=== PATIENT | male | born 1950 | race African-American/Black ===

== ENCOUNTER 2017-01-14 07:55 | Observation (INO) ==
[2017-01-13 11:21] LABS: Basophils # 0.1 10*3/uL (0.0-0.2); Basophils % 0.9 % (0.0-0.8); Eosinophils # 0.6 10*3/uL (0.0-0.87); Eosinophils % 9.6 % (0.00-10.9); Hematocrit 38.5 VOL% (42.0-52.0); Hemoglobin 12.1 GM/DL (14.0-18.0); Immature Granulocytes % 0.3 %; Immature Granulocytes Absolute 0.02 #; Lymphocytes # 0.9 10*3/uL (1.4-4.0); Lymphocytes % 14.2 % (21.2-54.2); Mean Corpuscular HGB Conc 31.4 GM/DL (32-36); Mean Corpuscular Hemoglobin 27 PG (27-34); Mean Corpuscular Volume 84.4 FL (87-102); Mean Platelet Volume 10.1 FL (9.6-12.0); Monocytes # 0.6 10*3/uL (0.11-0.8); Monocytes % 8.4 % (1.7-12.7); Neutrophils # 4.4 10*3/uL (1.4-7.4); Neutrophils % 66.6 % (38.7-73.9); Platelet Count 252 T/CUMM (130-400); Red Blood Count 4.56 MC/CUMM (3.8-5.5); Red Cell Distribution Width 14.8 % (9.3-17.3); White Blood Count 6.6 T/CUMM (4-12)
[2017-01-13 11:43] LABS: Albumin 3.4 G/DL (3.4-5.0); Bilirubin,Total 2.1 MG/DL (0.2-1.0); Calcium 9.4 MG/DL (8.5-10.1); Osmolality,Calculated 275.5 MOS/KG (273-304); Potassium 3.5 MMOL/L (3.5-5.1); Total Protein 6.7 G/DL (6.4-8.3)
--- NOTE | 2017-01-13 12:07 | EKG Report ---
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
--- NOTE | 2017-01-13 15:15 | XRay Report ---
Exam: XR chest 2V Indication: Preop Comparison study: 11/16/2013 Findings: The heart, mediastinum and bony structures are stable from prior. There is no focal consolidation, pneumothorax or pleural effusion identified. Impression: No acute cardiopulmonary process. PROCEDURE INTERPRETED AT [facility] DEPARTMENT OF RADIOLOGY Final Report Signed by: Drew Waldron
[2017-01-14] MEDS: SODIUM CHLORIDE 0.9% 1,000 ML IV SCH (08:45)
[2017-01-14 09:49] LABS: INR 1.1; PT Patient Result 11.4 SECS
[2017-01-14] MEDS ORDERED: fentaNYL 100 MCG/2 ML VIAL ONE (12:36)
[2017-01-14] MEDS ORDERED: MIDAZOLAM 2 MG/2 ML VIAL ONE (12:36)
[2017-01-14] MEDS ORDERED: PROPOFOL 200 MG/20 ML VIAL IV ONE (12:50)
[2017-01-14] MEDS ORDERED: LIDOCAINE 2% 5 ML VIAL ONE (12:50)
--- NOTE | 2017-01-14 12:52 | History and Physical Update ---
History and Physical Update - Physical Exam Mental Status: alert and oriented Heart: regular rate and rhythm Lung: clear to auscultation Abdomen: within normal limits Vitals: within normal limits History and Physical Changes: 66-year-old male with gallstones and recent biliary pain is noted to have abnormal liver tests. His total bilirubin was 2.1 yesterday with transaminases moderately elevated.
--- NOTE | 2017-01-14 13:14 | Operative Note ---
Date of procedure: 01/14/17 Pre-op diagnosis: Gallstone pancreatitis, elevated liver test Procedure: Procedure: Endoscopic retrograde cholangiography with common bile duct sphincterotomy and stone removal with balloon Brief clinical abstract: Patient is a 66-year-old male with gallstones who has had recent episodic biliary type pain. He had more severe pain within the last couple of days and has evidence of pancreatitis with elevated lipase. His liver tests were elevated yesterday with total bilirubin 2.1 and transaminases in the several 100 range. Procedure findings: After informed consent was obtained, patient was placed in the prone position. Therapeutic video duodena scope was inserted into the upper esophagus in blind fashion. Esophageal mucosa appeared normal. Stomach was examined including retroflexed view of the cardia and fundus with no abnormality seen. The pyloric channel, duodenal bulb, second and third portion of the duodenum including the appearance of the ampulla were normal. Sphincterotome and 0.035 inch guidewire were used. Biliary tree was deeply cannulated and filled with contrast. Right and left intrahepatic systems had normal appearance. Common bile duct and common hepatic duct were slightly dilated to approximately 7 mm maximally. Filling defects were visible in the distal common bile duct. Common bile duct sphincterotomy was performed over the guidewire to over 10 mm diameter. Occlusion balloon was advanced over the wire into the proximal common hepatic duct. This was dragged distally with fairly large amount of sludge like stone material passing into the duodenum. 2 subsequent passes were made with the inflated balloon from the proximal common hepatic duct into the duodenum with a minimal amount of further sludge material passed. An occlusion cholangiogram was obtained afterwards which appeared normal with no further visible filling defects. Pancreatogram was intentionally not obtained. He appeared to tolerate the procedure well. Impression: Choledocholithiasis-status post endoscopic removal with common bile duct sphincterotomy Recommendations: Cholecystectomy as planned. Anesthesia: MAC Surgeon / Physician: Brian Guerrero Estimated blood loss: none Specimens: none sent Condition: stable Disposition: post procedure unit Results - Labs CBC & BMP: 01/13/17 11:12 01/13/17 11:12 Discharge Plan - Discharge Medications No Action Diltiazem HCl [Cartia XT] 120 mg PO DAILY Valsartan/Hydrochlorothiazide [Valsartan-Hctz 160-25 mg Tab] 1 each PO DAILY metFORMIN [Glucophage] 500 mg PO BID W/MEALS - Follow Up or Referral - Forms/Instructions
--- NOTE | 2017-01-14 13:20 | Anesthesia ---
Anesthesia Post OP - Post Ansesthetic Evaluation Patient seen in post op: Yes Resp: within normal limits CV: within normal limits Mental: within normal limits Temp: within normal limits [id number]: within normal limits Nausea and Vomiting: within normal limits Pain: within normal limits
[2017-01-14] MEDS ORDERED: DEXTROSE 50% 25 GM/50 ML VIAL IV PRN (15:07)
[2017-01-14] MEDS ORDERED: GLUCAGON 1 MG VIAL IM PRN (15:07)
--- NOTE | 2017-01-14 15:10 | Fluoroscopy Report ---
FL ERCP w sphincterotomy Clinical Information: Intraoperative fluoroscopy during ERCP for cbd stone Total fluoroscopy time:3 MIN 32 SEC Comparison: Prior radiographs 12/22/2016 Findings: Intraoperative fluoroscopic images demonstrate cannulation of the common bile duct with opacification into the intrahepatic bile ducts which are nondilated. There are several filling defects noted within the distal CBD, most consistent with the given history of retained CBD stones. At the conclusion of the procedure, no residual filling defects are definitely identified within the common bile duct. Impression: Intraoperative fluoroscopy at ERCP with clearing of stones from the CBD as detailed above. PROCEDURE INTERPRETED AT [facility] DEPARTMENT OF RADIOLOGY Final Report Signed by: Drew Waldron
--- NOTE | 2017-01-14 16:03 | Event Note ---
The patient had elevated liver function tests preoperatively so I arranged for ERCP with Dr. casper. ERCP was performed without complications and he is just finished the procedure and we have put him on the floor with plans for laparoscopic cholecystectomy in the morning. The procedure and risks were once again discussed with the patient and he wishes to proceed
[2017-01-14] MEDS ORDERED: PHENOL 1.4% THROAT SPRAY 177 ML BOTTLE PO PRN (18:30)
[2017-01-15] MEDS ORDERED: CLINDAMYCIN INJ 900 MG in PREMIX 1 EACH IV ONE (06:00)
--- NOTE | 2017-01-15 11:18 | Operative Note ---
Date of procedure: 01/15/17 Pre-op diagnosis: acute cholecystitis and cholelithiasis Post-op diagnosis: other (pericholecystic abscess with extensive adhesions) Procedure: Laparoscopic cholecystectomy with intraoperative cholangiogram #2 drainage of pericholecystic abscess and extensive lysis of adhesions Findings and technique: After informed consent was obtained the patient was brought the operating room and placed in spine position. After successful induction with general anesthesia the patient's abdomen was prepped and draped in usual sterile fashion. Local anesthesia was infiltrated the umbilicus and a small transverse incision was made in umbilicus where an open technique was used and the peritoneal cavity without difficulty. Right upper quadrant was visualized and the patient was noted to have extensive adhesions between the free edge of the gallbladder and the anterior abdominal wall. Apparently had previous percutaneous drain. There were adherent loops of small bowel and colon as well. The gallbladder was not visible. Additional ports were placed in the upper abdomen under camera vision and sharp dissection used to be tediously dissected the small bowel off of what appeared to be of pericholecystic abscess cavity with chronic granulation tissue and debris within it. This was cultured. Was also biopsied to make sure that it was not malignant. Frozen section returned benign. I then tediously dissected small bowel omentum and colon off of the surface of the markedly thickened gallbladder. Gallbladder was thickened to a point that it could not be grasped. Lifting the gallbladder upwards with a tenaculum I am carefully dissected the omentum and adhesions off of the body and proximal neck of the gallbladder. I did not want to dissected the distal neck and I could identify the lymph node of Low as well as the cystic artery running medially over the proximal neck of the gallbladder. I then opened the gallbladder this point in suctioned out multiple stones. Working within the inside of the gallbladder I dissected down the neck of the gallbladder opening up the gallbladder and retrieving stones and removing them through the 11 mm port site in the upper midline. I was then able to finally visualize the orifice of the cystic duct from inside of the gallbladder and cannulated this with a cholangiogram catheter and obtained a cholangiogram. This confirmed normal ductal anatomy and a long cystic duct and showed me that I was well away from the common bile duct. I then dissected free and transected the neck of the gallbladder couple of centimeters proximal to the distal neck so that I could place an Endo Close chromic free tie loop around the neck of the gallbladder. There were no stones within the neck of the gallbladder or cystic duct. I left a portion of the back wall of the gallbladder present along the liver bed to prevent any chance of injury to common hepatic duct or other structures that could not be easily visualized. The gallbladder was removed along with stones and placed in an Endo Catch bag and removed through the umbilical port site. This area was copiously irrigated suctioned dry and no bleeding or bile leakage noted. Sampson-Gottlieb drain was placed in the liver bed and brought out through one 5 mm port sites. Gas was evacuated from the abdomen the fascial defect at the umbilicus closed with running 0 Monocryl suture. The skin incisions were closed with skin clips. This was a much more difficult procedure than usual because of the extensive thickening of the gallbladder and the pericholecystic abscess and adhesions to adjacent structures. All of these factors greatly added to the complexity and difficulty of the case essentially tripling the usual expected operative time. He appeared to tolerate the procedure well however and had no apparent complications. Anesthesia: GETA, local Surgeon / Physician: Chinedu Powell III. Estimated blood loss: other (50 mL) Specimens: other (gallbladder) Condition: stable Disposition: PACU Results - Labs CBC & BMP: 01/13/17 11:12 01/13/17 11:12 Discharge Plan - Discharge Medications No Action Diltiazem HCl [Cartia XT] 120 mg PO DAILY Valsartan/Hydrochlorothiazide [Valsartan-Hctz 160-25 mg Tab] 1 each PO DAILY metFORMIN [Glucophage] 500 mg PO BID W/MEALS - Follow Up or Referral - Forms/Instructions
[2017-01-15] MEDS ORDERED: PROPOFOL 200 MG/20 ML VIAL IV ONE (11:19)
[2017-01-15] MEDS ORDERED: DESFLURANE 1 UNIT/15 MINUTE INH ONE (11:19)
[2017-01-15] MEDS ORDERED: MIDAZOLAM 2 MG/2 ML VIAL ONE (11:20)
[2017-01-15] MEDS ORDERED: ROCURONIUM 100 MG/10 ML VIAL IV ONE (11:20)
[2017-01-15] MEDS ORDERED: NEOSTIGMINE 10 MG/10 ML VIAL ONE (11:20)
[2017-01-15] MEDS ORDERED: GLYCOPYRROLATE 0.4 MG/2 ML VIAL ONE (11:20)
[2017-01-15] MEDS ORDERED: ONDANSETRON 4 MG/2 ML VIAL ONE ×2 (11:20→11:41)
[2017-01-15] MEDS ORDERED: ACETAMINOPHEN 1,000 MG/100 ML VIAL IV ONE (11:20)
[2017-01-15] MEDS ORDERED: fentaNYL 100 MCG/2 ML VIAL ONE (11:20)
[2017-01-15] MEDS ORDERED: LACTATED RINGERS 1,000 ML IV ONE (11:20)
--- NOTE | 2017-01-15 11:24 | Fluoroscopy Report ---
Exam: FL cholangiogram in surgery Date: 01/15/2017 12:00 AM Comparison: ERCP, 01/14/2017 Indication: Operative cholangiogram Technique:[Fluoroscopy time 55 seconds document. 59 films were obtained after the injection of contrast material into the bile ducts by Dr. Powell.] Findings: Multiple gallstones are identified. No dilatation of the bile ducts or obstructing calculus. Contrast in the duodenum. Impression: Cholelithiasis with no definite residual calculus identified in the nondilated ducts. PROCEDURE INTERPRETED AT [facility] DEPARTMENT OF RADIOLOGY Final Report Signed by: Dr. Pamela Strickland
[2017-01-15] MEDS ORDERED: HYDROmorphone 2 MG/1 ML VIAL ONE (11:41)
[2017-01-15] MEDS: HYDROmorphone 2 MG/1 ML VIAL IV PRN ×2 (11:42→11:47)
[2017-01-15] MEDS ORDERED: ONDANSETRON 4 MG/2 ML VIAL IV PRN (11:47)
[2017-01-15] MEDS: MORPHINE 2 MG/1 ML SYRINGE IV PRN ×2 (14:49→21:27)
[2017-01-15] MEDS: CLINDAMYCIN INJ 900 MG in PREMIX 1 EACH IV SCH ×2 (14:49→21:27)
--- NOTE | 2017-01-15 16:02 | Cardiology Consult Note ---
Geoffrey Pinto April RN, am scribing for, and in the presence of, Brian Marr MD 16:02. Assessment and Plan - Time spent with patient Time spent with patient: Greater than 30 minutes (Assessment, planning, and documentation) (1) Hypertension Status: Chronic Assessment and plan: 1. 66-year-old BM with control hypertension, borderline diabetes, followed by Dr. Nash for wandering atrial pacemaker doing well postoperative laparoscopic cholecystectomy this morning 2. Hemodynamics were stable doing well clinically 3. We'll sign off, as he has no active cardiac issues currently 4. Please call us if further input from cardiology needed. Current Visit: Yes (2) Wandering (atrial) pacemaker Status: Chronic Current Visit: Yes History of Present Illness - Data of Consult Patient: known to practice within the last 3 years Consult date: 01/15/17 Requesting Physician: Chinedu Powell III. - Consult Narrative Reason for consult: known to you History of present illness: Mr. Fine is a 66 year old male who is routinely followed by Dr. Nash with a history of wandering (atrial) pacemaker, hypertension, borderline diabetic and GERD. Surgical history before this admission include colonoscopy. Family history is positive for father with hypertension and ME and mother with hypertension. He reportedly quit smoking about 30 years ago. He reports he was admitted yesterday for cholecystectomy with Dr. Sherry PIERSON, but on admission was noted to have abnormal liver tests. ERCP was performed by Dr. Herrera yesterday, and patient underwent cholecystectomy this morning with Dr. Sherry PIERSON. We have been asked to follow as patient is known to Dr. Nash. Currently patient is resting in bed in no acute distress. He denies any chest pain, shortness of breath, palpitations, or dizziness. Abdominal dressings noted to be dry and intact, SHAILESH drain noted. He is still very drowsy from surgery and apologizes because he keeps nodding off as I interview him. CC: Chinedu Powell III., - Home Medications and Allergies Home Medications: Home Medications Medication Instructions Recorded Confirmed Type Diltiazem HCl [Cartia XT] 120 mg PO DAILY 01/13/17 01/14/17 History Valsartan/Hydrochlorothiazide 1 each PO DAILY 01/13/17 01/14/17 History [Valsartan-Hctz 160-25 mg Tab] metFORMIN [Glucophage] 500 mg PO BID W/MEALS 01/13/17 01/14/17 History Allergies/Adverse Reactions: Allergies Allergy/AdvReac Type Severity Reaction Status Date / Time Penicillins AdvReac Severe ANAPHYLAXIS Verified 01/13/17 10:50 - Constitutional Constitutional: Present: as per HPI - Cardiovascular Cardiovascular: Absent: chest pain at rest, chest pain with activity, dyspnea, dyspnea on exertion, edema, radiating jaw, neck or arm pain, lightheadedness, palpitations - Respiratory Respiratory: Absent: cough, dyspnea, hemoptysis, dyspnea on exertion - Gastrointestinal Gastrointestinal: Present: abdominal pain (Tenderness at surgical site). Absent : constipation, diarrhea, melena, nausea, vomiting - Genitourinary Genitourinary: Absent: difficulty urinating, dysuria, hematuria - Musculoskeletal Musculoskeletal: Absent: limited range of motion - Neurological Neurological: Present: other (He is still very drowsy from surgery). Absent: abnormal gait Medical,Surgical,& Family Hx - Medical History Cardio: History of: Cardiac Dysrhythmia (Wandering (atrial) pacemaker), Hypertension Endocrine: History of: Diabetes Mellitus (NIDDM) (Borderline) Gastrointestinal: History of: GERD - Surgical History Abdominal Surgeries: Surgical HX of: Cholecystectomy (01/15/2017), Colonoscopy ( 8 years) - Family History Family History: Reports;: Family Heart Disease (Father), Family Hypertension ( Mother and father) - Social History Smoking Status: Former smoker (Reportedly quit 30 years ago) Have you smoked in the last 12 months: No Frequency of Alcohol Use: None Type of Drug Use: None Functional capacity: independent ambulation Physical Examination Vital Signs Temp Pulse Resp BP Pulse Ox 96.7 F L 86 18 150/93 97 01/14/17 08:46 01/14/17 08:46 01/14/17 08:46 01/14/17 08:46 01/14/17 08:46 General: Present: Appears Well, No Apparent Distress HEENT: Present: PERRL, Mucus Membranes Moist Neck: Present: Supple Neck, Midline Trachea, No JVD/HJR Cardiac: Present: Regular Rhythm. Absent: No Murmur Lungs: Present: Normal Breath Sounds, No Wheeze, Rales, Rhonchi Neuro: Absent: Essential Tremor Abdomen: Present: Soft, Active Bowel Sounds, Tender (At surgical site), Other ( Dressings noted to be dry and intact, SHAILESH drain noted) Skin: Present: Clear Extremities: Present: No Edema, Normal Upper Extr. Pulses, Normal Lower Extr. Pulses Result/EKG - Labs CBC & BMP: 01/15/17 12:48 01/13/17 11:12 Labs: Laboratory Results - last 24 hr 01/15/17 12:48 Hct 37.1 L Quality Measures - VTE Contraindication to Pharmacological VTE Prophylaxis: High Risk of Bleeding Justa Pinto Randall Scott, MD, personally performed the services described in this documentation, ascribed by Rose Hale RN in my presence, and it is both accurate and complete [id number] .
[2017-01-15] MEDS: DILTIAZEM CD 120 MG CAPSULE PO SCH (16:41)
[2017-01-15] MEDS: VALSARTAN/HCTZ 160-12.5 MG TABLET PO SCH (16:42)
[2017-01-15] MEDS: hydroCHLOROthiazide 12.5 MG CAPSULE PO SCH (16:43)
[2017-01-15] MEDS: SODIUM CHLORIDE 0.9% 1,000 ML IV SCH (18:35)
[2017-01-15] MEDS: DEXTROSE 5% LACTATED RINGERS 1,000 ML IV SCH (18:36)
[2017-01-16 03:45] LABS: Basophils # 0.1 10*3/uL (0.0-0.2); Basophils % 0.5 % (0.0-0.8); Eosinophils # 0.4 10*3/uL (0.0-0.87); Eosinophils % 3.3 % (0.00-10.9); Hematocrit 38.2 VOL% (42.0-52.0); Hemoglobin 11.9 GM/DL (14.0-18.0); Immature Granulocytes % 0.2 %; Immature Granulocytes Absolute 0.02 #; Lymphocytes # 0.8 10*3/uL (1.4-4.0); Lymphocytes % 7.1 % (21.2-54.2); Mean Corpuscular HGB Conc 31.2 GM/DL (32-36); Mean Corpuscular Hemoglobin 26 PG (27-34); Mean Corpuscular Volume 84.3 FL (87-102); Mean Platelet Volume 10.3 FL (9.6-12.0); Monocytes # 0.8 10*3/uL (0.11-0.8); Monocytes % 7.9 % (1.7-12.7); Neutrophils # 8.7 10*3/uL (1.4-7.4); Platelet Count 230 T/CUMM (130-400); Red Blood Count 4.53 MC/CUMM (3.8-5.5); White Blood Count 10.7 T/CUMM (4-12)
[2017-01-16 04:13] LABS: Albumin 2.7 G/DL (3.4-5.0); Calcium 8.5 MG/DL (8.5-10.1); Osmolality,Calculated 287.1 MOS/KG (273-304); Potassium 3.9 MMOL/L (3.5-5.1); Total Protein 5.5 G/DL (6.4-8.3)
[2017-01-16] MEDS: DEXTROSE 5% LACTATED RINGERS 1,000 ML IV SCH (04:17)
[2017-01-16] MEDS: CLINDAMYCIN INJ 900 MG in PREMIX 1 EACH IV SCH ×3 (05:02→22:10)
[2017-01-16] MEDS: MORPHINE 2 MG/1 ML SYRINGE IV PRN (08:23)
[2017-01-16] MEDS: DILTIAZEM CD 120 MG CAPSULE PO SCH (09:53)
[2017-01-16] MEDS: VALSARTAN/HCTZ 160-12.5 MG TABLET PO SCH (09:54)
[2017-01-16] MEDS: hydroCHLOROthiazide 12.5 MG CAPSULE PO SCH (09:54)
--- NOTE | 2017-01-16 11:38 | Event Note ---
General Surgery Progress Note Chief complaint This patient is a 66-year-old man admitted with choledocholithiasis treated with ERCP, sphincterotomy, and stone removal followed by laparoscopic cholecystectomy with drainage of pericholecystic abscess and lysis of adhesions by Dr. Powell on 01/15/2017 Interval history The patient is not eating real well and he still has some nausea. His labs demonstrate a stable hemoglobin. His white blood cell count is normal. His alkaline phosphatase is a little bit elevated but his bilirubin is normal. He has not gotten up and walked in the hallway yet. His SHAILESH drain is serosanguineous. Physical exam Afebrile, low-grade tachycardia in the 100s, blood pressure normal Chest is clear Heart is regular but tachycardic with no murmurs Abdominal exam reveals expected postoperative tenderness with serosanguineous fluid in the SHAILESH drain Extremities without edema Labs Reviewed Imaging None Assessment and plan Advance to regular diet Increase activity Stop IV fluids and repeat labs tomorrow Possible discharge home tomorrow
[2017-01-16] MEDS: SODIUM CHLORIDE 0.9% 1,000 ML IV SCH (18:40)
[2017-01-17 03:44] LABS: Basophils # 0.1 10*3/uL (0.0-0.2); Basophils % 0.6 % (0.0-0.8); Eosinophils # 0.7 10*3/uL (0.0-0.87); Eosinophils % 6.1 % (0.00-10.9); Hematocrit 34.4 VOL% (42.0-52.0); Hemoglobin 10.7 GM/DL (14.0-18.0); Immature Granulocytes % 0.4 %; Immature Granulocytes Absolute 0.04 #; Lymphocytes # 1.2 10*3/uL (1.4-4.0); Lymphocytes % 10.5 % (21.2-54.2); Mean Corpuscular HGB Conc 31.1 GM/DL (32-36); Mean Corpuscular Hemoglobin 26 PG (27-34); Mean Corpuscular Volume 83.9 FL (87-102); Monocytes # 1.1 10*3/uL (0.11-0.8); Neutrophils # 8.1 10*3/uL (1.4-7.4); Neutrophils % 72.4 % (38.7-73.9); Platelet Count 203 T/CUMM (130-400); Red Cell Distribution Width 14.9 % (9.3-17.3); White Blood Count 11.2 T/CUMM (4-12)
[2017-01-17 04:10] LABS: Albumin 2.6 G/DL (3.4-5.0); Bilirubin,Total 0.9 MG/DL (0.2-1.0); Calcium 8.7 MG/DL (8.5-10.1); Osmolality,Calculated 276.5 MOS/KG (273-304); Potassium 3.4 MMOL/L (3.5-5.1); Total Protein 5.4 G/DL (6.4-8.3)
[2017-01-17] MEDS: CLINDAMYCIN INJ 900 MG in PREMIX 1 EACH IV SCH (06:03)
--- NOTE | 2017-01-17 07:09 | Discharge Summary ---
Hospital Course - Hospital Course Hospital Course: This patient was admitted and had a ERCP with sphincterotomy and stone extraction as well as laparoscopic cholecystectomy with drainage of pericholecystic abscess and lysis of adhesions for cholecystitis and choledocholithiasis. He did well postoperatively and was discharged home once he was tolerating his diet and his vital signs were normal and his pain is well controlled. He was discharged home with follow-up with Dr. Powell in a week. Specialty Discharge - Follow Up or Referrals Follow up with: Chinedu Powell III., MD [Physician] - 1 Week Discharge Plan - Discharge Data Disposition: Disch To Home/Self Care Condition at Discharge: Stable Discharge Diet: advance to your usual diet Activity: no lifting Hygiene: may shower Weight Bearing at Discharge: weight bear as tolerated Driving: not until seen by doctor Contact your physician if you experience:: fever over 101, Difficulty voiding, Redness or swelling, Nausea/Vomiting, Shortness of breath, Bleeding, pain uncontrolled by pain medications Wound / Dressing Care Instructions: It is okay to take off your dressings and shower. Do not submerge underwater. - Discharge Medications New metroNIDAZOLE TAB [Flagyl Cap/Tab] 500 mg PO TID #30 tablet HYDROcodone/ACETAMIN 7.5-325 [[place]dalena 7.5-325] 1 tablet PO Q6H PRN #45 tablet PRN Reason: Pain Moderate (4-7) Levofloxacin Tab [Levaquin Tab] 750 mg PO DAILY #10 tablet Continue Diltiazem HCl [Cartia XT] 120 mg PO DAILY Valsartan/Hydrochlorothiazide [Valsartan-Hctz 160-25 mg Tab] 1 each PO DAILY metFORMIN [Glucophage] 500 mg PO BID W/MEALS - Follow Up or Referral Follow Up: Chinedu Powell III., MD [Physician] - 1 Week - Forms/Instructions Exam - Constitutional Vitals: Period Temp Pulse Resp BP Sys/Russell Pulse Ox Last 24 Hr 97.6 F-100.9 F 89-106 18-20 125-159/62-87 91-99 General appearance: no acute distress, over weight - Head Head exam: Present: normal inspection, normocephalic - Eye Eye exam: Present: EOMI Pupils: Present: DELICIA - ENT ENT exam: Present: normal exam - Neck Neck exam: Present: normal inspection - Respiratory Respiratory exam: Present: clear to auscultation bilaterally. Absent: accessory muscle use, chest wall tenderness - Cardiovascular Cardiovascular exam: Present: tachycardia. Absent: irregular rhythm, systolic murmur - GI/Abdominal GI/Abdominal exam: Present: soft, other (SHAILESH drain is serosanguineous). Absent: tenderness, rebound - Extremities Exam Extremities exam: Present: normal inspection, normal capillary refill - Back Exam Back exam: Present: normal inspection - Neurological Exam Neurological exam: Present: alert, oriented X3 - Psychiatric Psychiatric exam: Present: normal affect, normal mood - Skin Skin exam: Present: normal color, warm Discharge Results Procedures and tests throughout hospitalization: Pending Orders 01/15/17 Abscess Culture Routine Anaerobic Culture Routine Labs on day of discharge: Labs from last 24 hours 01/17/17 01/17/17 03:09 03:09 WBC 11.2 RBC 4.10 Hgb 10.7 L Hct 34.4 L MCV 83.9 L MCH 26 L MCHC 31.1 L RDW 14.9 Plt Count 203 MPV 10.0 Neut % (Auto) 72.4 Lymph % (Auto) 10.5 L [place] % (Auto) 10.0 Eos % (Auto) 6.1 Baso % (Auto) 0.6 Neut # (Auto) 8.1 H Lymph # (Auto) 1.2 L [place] # (Auto) 1.1 H Eos # (Auto) 0.7 Baso # (Auto) 0.1 Immature Gran % 0.4 Nucleated RBC % 0.0 Immature Gran # 0.04 Nucleated RBCs # 0.00 Sodium 139 Potassium 3.4 L Chloride 98 Carbon Dioxide 29 Anion Gap 15.4 H BUN 10 Creatinine 0.70 GFR Calculation 148 BUN/Creatinine Ratio 14.00 Glucose 109 H Calculated Osmolality 276.5 Calcium 8.7 Total Bilirubin 0.90 AST 16 ALT 68 H Alkaline Phosphatase 119 H Total Protein 5.4 L Albumin 2.6 L Globulin 2.8 Albumin/Globulin Ratio 0.9 L Lipase 51.0 L D Preliminary micro results at discharge 01/15/17 Unknown Abscess Culture - Preliminary Abdomen - Abscess No growth at 24 hours DS: Provider Date of admission: 01/14/17 12:32 Primary care physician: Jonnie Stover DO Attending physician on admission: Chinedu Powell III., Consults: 01/14/17 14:44 Consult to Pastoral Services [CONS] Routine Comment: Pastoral Screen: Request Special Events Driver Visit Pastoral Screen Source of Request: Patient 01/15/17 12:12 Consult to Physician [CONS] Routine Comment: known to you Consulting Provider: Jeanie Nash When should Consulting Provider be notified: Now Discharging clinician: Sean Pearson MD Expected date of discharge: 01/17/17
[2017-01-17] MEDS: hydroCHLOROthiazide 12.5 MG CAPSULE PO SCH (09:25)
[2017-01-17] MEDS: DILTIAZEM CD 120 MG CAPSULE PO SCH (09:25)
[2017-01-17] MEDS: VALSARTAN/HCTZ 160-12.5 MG TABLET PO SCH (09:26)
[2017-01-17 12:05] VITALS: BP 127/74
--- NOTE | 2017-01-18 10:17 | Pathology Report from [facility] ---
ACCESSION # : [id number] PATIENT NAME : Harris Fine ORDERING DR : DEXTER HAWKINS III, MD CLINICAL HX: Cholecystitis/cholelithiasis POST-OP DX: Same SPECIMEN INFO: #1 Gallbladder wall #2 Gallbladder GROSS DESCRIPTION: #1 Received fresh for frozen section labeled "HARRIS FINE & GALLBLADDER WALL" is a 0.5 x 0.4 cm red brown tissue fragment submitted in one cassette for frozen section.#2 Received in formalin labeled "HARRIS FINE & #2" is an opened markedly inflamed gallbladder measuring 8.9 x 3.9 cm. The serosa is erythematous, ulcerated with serosal adhesions present. The mucosa is bile stained green. The gallbladder wall has an average thickness of 1 cm. There are adherent tiny black smooth and roughened stones measuring collectively 1 x 0.5 cm. The cystic duct is difficult to ascertain. Also in the specimen container are additional black smooth stones measuring up to 0.8 cm. Pan Tank Worker sections are submitted in cassette #2. DIAGNOSIS FOR HARRIS FINE: #1 GALLBLADDER WALL BIOPSY: Benign fibromuscular tissue with chronic inflammation.#2 GALLBLADDER, CHOLECYSTECTOMY: Acute and chronic cholecystitis; cholelithiasis. SERVICE DATE: 01/15/2017 REPORT DATE: 01/18/2017 PATHOLOGIST: Clementina Joyner
== END 2017-01-17 11:27 | disposition home or self-care (01) ==
LOC: N.GILAB 07:55 → EDSTATUS 10:00 → INTOOBSV 14:01 → N.3E 14:12
PROVIDERS: ADMIT Surgery; ATTEND Surgery
PROC: ERCPWSP (ICD-10-PCS; 2017-01-14 10:05)
PROC: LAPCHOL (2017-01-15 07:55)